=== PATIENT | male | born 1995 | race Caucasian/White ===

== ENCOUNTER 2016-06-25 04:00 | Emergency (ER) | payer OTHER ==
[~2016-06-25] VITALS: Ht 190.5 cm; Wt 90.9 kg
[2016-06-25 04:08] VITALS: BP 153/79
[2016-06-25 05:25] LABS: INFLUENZA B NEGATIVE
[2016-06-25] MEDS ORDERED: LEVAQUIN 5500 MG/TA1 PO (05:31)
[2016-06-25 05:38] VITALS: PULSE 82; TEMP 100.7
== END 2016-06-25 05:38 | disposition home or self-care (01) ==
LOC: COL.ER 04:00 → EDSEX 04:17 → COL.ER 04:17
PROVIDERS: Emergency Medicine
DX: J20.9 Acute bronchitis, unspecified (principal)